=== PATIENT | male | born 2000 | race Caucasian/White ===

== ENCOUNTER 2022-01-09 19:16 | Emergency (ER) | payer MEDICAID ==
[~2022-01-09] VITALS: Ht 177.8 cm; Wt 111.1 kg
--- NOTE | 2022-01-09 20:53 | NUR ---
Dr. Sutton at bedside for [facility]
[2022-01-09] MEDS ORDERED: CYCLOBENZAPRINE HCL 10 MG TABLET PO ONE (21:15)
[2022-01-09] MEDS ORDERED: KETOROLAC TROMETHAMINE 60 MG INJ IM ONE ×2 (21:15→21:27)
[2022-01-09] MEDS ORDERED: CYCLOBENZAPRINE HCL 10 MG TABLET ONE (21:27)
[2022-01-09 21:28] LABS: *BILIRUBIN,URIN NEGATIVE (NEGATIVE); *BLOOD, URINE NEGATIVE (NEGATIVE); *CLARITY,URINE CLEAR (CLEAR); *COLOR,URINE YELLOW (YELLOW); *KETONES,URINE 1+ (NEGATIVE); *UROBILINOGEN,URINE 0.2 E.U./dl (NORMAL); LEUKOCYTE ESTERASE ,URINE NEGATIVE (NEGATIVE); NITRITE, URINE NEGATIVE (NEGATIVE); PH,URINE 6.5 (5.0-8.0); UGLUCOSE NEGATIVE (NEGATIVE)
[2022-01-09] MEDS ORDERED: HYDROCODONE/APAP 5-325MG TABLET PO ONE (22:00)
[2022-01-09] MEDS ORDERED: HYDROCODONE/APAP 5-325MG TABLET ONE (22:10)
[2022-01-09] MEDS ORDERED: HYDR-4209 PO ×3 (22:10→22:20)
[2022-01-09] MEDS ORDERED: IBUP-1957 PO (22:10)
[2022-01-09 22:29] VITALS: BP 122/79
== END 2022-01-09 22:20 | disposition home or self-care (01) ==
LOC: ER 19:21
DX: M54.9 Dorsalgia, unspecified (principal); Z87.891 Personal history of nicotine dependence
CPT/HCPCS: 99283; 81003; 96372; J1885; A4663

== ENCOUNTER 2023-05-08 17:19 | Emergency (ER) | payer SELFPAY ==
[~2023-05-08] VITALS: Ht 175.3 cm; Wt 99.8 kg
[~2023-05-08 17:19] MED LIST: HYDR-4209 PO; IBUP-1957 PO
[2023-05-08] MEDS ORDERED: KETOROLAC TROMETHAMINE 60 MG INJ IM ONE ×2 (17:58→18:00)
[2023-05-08] MEDS ORDERED: HYDR-3980 PO (18:21)
[2023-05-08] MEDS ORDERED: NAPR-1164 PO (18:21)
[2023-05-08] MEDS ORDERED: FLAS1KIT2 TP (18:35)
[2023-05-08] MEDS ORDERED: FLAS1EAC2 TP (18:35)
[2023-05-08 18:55] VITALS: BP 133/81; TEMP 98.2; O2SAT 99
== END 2023-05-08 18:56 | disposition home or self-care (01) ==
LOC: ER 17:19
DX: S16.1XXA Strain of muscle, fascia and tendon at neck level, initial encounter (principal); E88.810 Metabolic syndrome; Z79.1 Long term (current) use of non-steroidal anti-inflammatories (NSAID); Z79.899 Other long term (current) drug therapy; X50.1XXA Overexertion from prolonged static or awkward postures, initial encounter; Y93.89 Activity, other specified; Y92.89 Other specified places as the place of occurrence of the external cause; Y99.8 Other external cause status
CPT/HCPCS: 72125; A4606; A4663; J1885